=== PATIENT | female | born 1970 ===

== ENCOUNTER 2016-12-26 13:19 | Emergency (ER) | payer OTHER ==
[2016-12-26 13:29] VITALS: BMI 27.7
--- NOTE | 2016-12-26 13:48 | C.PDOC ---
History Of Present Illness 46 y/o F c PMHx peritonitis as teen, cholecystectomy, C section, myomectomy p/w abdominal pain x 3 hours. Pain is diffuse, mostly RLQ and epigastric, sharp, intermittent. She denies fever, chills, vomiting, diarrhea, constipation, dysuria. Time Seen by Provider: 12/26/16 13:42 Chief Complaint (Nursing): Abdominal Pain Past Medical History Vital Signs: Last Vital Signs Temp 98.4 F 12/26/16 16:36 Pulse 66 12/26/16 16:36 Resp 15 12/26/16 16:36 BP 116/78 12/26/16 16:36 Pulse Ox 98 12/26/16 16:36 Surgical History: Cholecystectomy Family History: States: No Known Family Hx - Social History Hx Alcohol Use: No Hx Substance Use: No - Immunization History Hx Tetanus Toxoid Vaccination: No Hx Influenza Vaccination: No Hx Pneumococcal Vaccination: No Review Of Systems Except As Marked, All Systems Reviewed And Found Negative. Constitutional: Negative for: Fever Cardiovascular: Negative for: Chest Pain Physical Exam - Physical Exam Additional Physical Exam Comments: Constitutional: No acute distress. Head: Normocephalic. Atraumatic. Eyes: PERRL. ENT: Moist mucous membranes. Neck: Supple. Cardiovascular: Regular rate. Radial pulses 2+ bilaterally. Chest: No tenderness. Respiratory: Clear to auscultation bilaterally. GI: Soft. RLQ tenderness with guarding. Epigastric tenderness without guarding. Old surgical scars from peritonitis. Nondistended. Back: No CVA tenderness. Musculoskeletal: No tenderness or swelling of extremities. Skin: No rash. Neurologic: Alert, no focal deficit. ED Course And Treatment - Laboratory Results Result Diagrams: 12/26/16 14:10 12/26/16 14:06 O2 Sat by Pulse Oximetry: 97 Medical Decision Making Medical Decision Making: Labs, urine, morphine, CT with oral contrast. Patient reports seafood allergy. PROCEDURE: CT Abdomen and Pelvis without intravenous contrast HISTORY: abd pain, RLQ tenderness COMPARISON: None. TECHNIQUE: Without contrast.. Contrast Dose: 0 Radiation dose: Total exam DLP = 402.51 mGy-cm. This CT exam was performed using one or more of the following dose reduction techniques: Automated exposure control, adjustment of the mA and/or kV according to patient size, and/or use of iterative reconstruction technique. FINDINGS: LOWER THORAX: Unremarkable. LIVER: Unremarkable. No gross lesion or ductal dilatation. GALLBLADDER AND BILE DUCTS: Status post cholecystectomy PANCREAS: Unremarkable. No gross lesion or ductal dilatation. SPLEEN: The spleen is significant for a large heterogeneous mass arising from the anterior lateral aspect of the spleen. This mass measures approximately 8.4 x 6.9 x 9.3 cm. There is serpiginous high attenuation within this mass as well as some punctate fernanda calcifications. There is nothing specific about the appearance of this mass to suggest its etiology. Differential diagnosis is extensive though most commonly splenic masses are hemangiomas or lymphangioma is or hamartomas. Further evaluation is required. ADRENALS: Unremarkable. No mass. KIDNEYS AND URETERS: Unremarkable. No hydronephrosis. No solid mass. VASCULATURE: Unremarkable. No aortic aneurysm. BOWEL: Unremarkable. No obstruction. No gross mural thickening. APPENDIX: Unremarkable. Normal appendix. PERITONEUM: No ascites or pneumoperitoneum. Incidentally noted jan atrophy of the rectus abdominis on the right side. LYMPH NODES: Unremarkable. No enlarged lymph nodes. BLADDER: Poorly distended. Grossly normal. REPRODUCTIVE: Unremarkable uterus. BONES: No acute fracture. OTHER FINDINGS: None. IMPRESSION: No evidence of appendicitis or diverticulitis. 9.3 cm heterogeneous splenic mass , within nonspecific appearance. Incidental hemiatrophy of the rectus abdominis on the right side. This may be related to prior surgery. Please correlate. Patient continues to have pain but in no acute distress. Will recommend NSAIDs, PO fluids, simethicone, Miralax. Given copy of CT report for follow up due to splenic mass. Disposition - Disposition Referrals: [facility] [Outside] Disposition: HOME/ ROUTINE Disposition Time: 16:52 Condition: STABLE Additional Instructions: PROCEDURE: CT Abdomen and Pelvis without intravenous contrast HISTORY: abd pain, RLQ tenderness COMPARISON: None. TECHNIQUE: Without contrast.. Contrast Dose: 0 Radiation dose: Total exam DLP = 402.51 mGy-cm. This CT exam was performed using one or more of the following dose reduction techniques: Automated exposure control, adjustment of the mA and/or kV according to patient size, and/or use of iterative reconstruction technique. FINDINGS: LOWER THORAX: Unremarkable. LIVER: Unremarkable. No gross lesion or ductal dilatation. GALLBLADDER AND BILE DUCTS: Status post cholecystectomy PANCREAS: Unremarkable. No gross lesion or ductal dilatation. SPLEEN: The spleen is significant for a large heterogeneous mass arising from the anterior lateral aspect of the spleen. This mass measures approximately 8.4 x 6.9 x 9.3 cm. There is serpiginous high attenuation within this mass as well as some punctate fernanda calcifications. There is nothing specific about the appearance of this mass to suggest its etiology. Differential diagnosis is extensive though most commonly splenic masses are hemangiomas or lymphangioma is or hamartomas. Further evaluation is required. ADRENALS: Unremarkable. No mass. KIDNEYS AND URETERS: Unremarkable. No hydronephrosis. No solid mass. VASCULATURE: Unremarkable. No aortic aneurysm. BOWEL: Unremarkable. No obstruction. No gross mural thickening. APPENDIX: Unremarkable. Normal appendix. PERITONEUM: No ascites or pneumoperitoneum. Incidentally noted jan atrophy of the rectus abdominis on the right side. LYMPH NODES: Unremarkable. No enlarged lymph nodes. BLADDER: Poorly distended. Grossly normal. REPRODUCTIVE: Unremarkable uterus. BONES: No acute fracture. OTHER FINDINGS: None. IMPRESSION: No evidence of appendicitis or diverticulitis. 9.3 cm heterogeneous splenic mass , within nonspecific appearance. Incidental hemiatrophy of the rectus abdominis on the right side. This may be related to prior surgery. Please correlate. Prescriptions: Famotidine [Pepcid] 1 tab PO BID #14 tab Ibuprofen [Motrin] 600 mg PO Q6 #25 tab Ondansetron ODT [Zofran ODT] 4 mg PO Q8 #12 odt Polyethylene Glycol 3350 [Miralax] 17 gm PO DAILY #238 gm Simethicone [Gas Relief] 80 mg PO QID #60 tab.chew Instructions: Abdominal Pain (ED) Forms: [employer] [facility] (Yakut) - Clinical Impression Clinical Impression: Abdominal pain - Scribe Statement The provider has reviewed the documentation as recorded by the Thereseibana Marshall All medical record entries made by the Thereseibe were at my direction and personally dictated by me. I have reviewed the chart and agree that the record accurately reflects my personal performance of the history, physical exam, medical decision making, and the department course for this patient. I have also personally directed, reviewed, and agree with the discharge instructions and disposition.
[2016-12-26] MEDS ORDERED: Sodium Chloride 0.9% 1,000 ML IV STA (13:51)
[2016-12-26] MEDS ORDERED: Sodium Chloride 0.9% 1,000 ML ONE (14:06)
[2016-12-26 14:14] LABS: BASO % 0.1 % (0.0-2.0); EOS % 0.4 % (0.0-4.0); HEMATOCRIT 41.8 % (34.0-47.0); LYMPH # 1.3 K/uL (1.0-4.3); LYMPH % 12.7 % (20.0-40.0); MEAN CORPUSCULAR HEMOGLOBIN 28.1 pg (27.0-31.0); MEAN CORPUSCULAR HGB CONC 32.3 g/dL (33.0-37.0); MEAN PLATELET VOLUME 10.2 fL (7.2-11.7); MONO # 0.5 K/uL (0.0-0.8); MONO % 5.2 % (0.0-10.0); RED CELL DISTRIBUTION WIDTH 14.4 % (11.5-14.5); WHITE BLOOD COUNT 10.4 K/uL (4.8-10.8)
[2016-12-26 14:22] LABS: CHLORIDE 100 mmol/L (98-107); POTASSIUM 3.8 mmol/L (3.6-5.2); SODIUM 143 mmol/L (132-148)
[2016-12-26 14:24] LABS: AST/SGOT 22 U/L (14-36); BILIRUBIN,TOTAL 0.6 mg/dL (0.2-1.3); CARBON DIOXIDE 28 mmol/L (22-30); GFR AFRICAN-AMERICAN > 60
[2016-12-26 14:25] LABS: ALB/GLOB RATIO 1.1 (1.0-2.1); ALKALINE PHOSPHATASE 125 U/L (38-126); ALT/SGPT 32 U/L (9-52); BLOOD UREA NITROGEN 10 mg/dL (7-17); CALCIUM 9.8 mg/dl (8.6-10.4); GLUCOSE,RANDOM 86 mg/dL (65-105)
[2016-12-26 14:31] LABS: RBC URINE 2 /hpf (0-3); URINE BILIRUBIN NEGATIVE (NEGATIVE); URINE BLOOD NEGATIVE (NEGATIVE); URINE COLOR Yellow (YELLOW); URINE GLUCOSE (UA) NORMAL (Normal); URINE KETONE NEGATIVE (NEGATIVE); URINE LEUKOCYTE ESTERASE NEG Leu/uL (Negative); URINE PROTEIN NEGATIVE (NEGATIVE); URINE UROBILINOGEN NORMAL mg/dL (0.2-1.0); WBC URINE 1 /hpf (0-5)
[2016-12-26] MEDS ORDERED: Iohexol 240 (50 ml) ONE (14:44)
[2016-12-26] MEDS ORDERED: Iohexol 240 (50 ml) PO ONE (14:45)
[2016-12-26 16:37] VITALS: RESP 15; TEMP 98.4
--- NOTE | 2016-12-26 16:53 | CT ---
PROCEDURE: CT Abdomen and Pelvis without intravenous contrast HISTORY: abd pain, RLQ tenderness COMPARISON: None. TECHNIQUE: Without contrast.. Contrast Dose: 0 Radiation dose: Total exam DLP = 402.51 mGy-cm. This CT exam was performed using one or more of the following dose reduction techniques: Automated exposure control, adjustment of the mA and/or kV according to patient size, and/or use of iterative reconstruction technique. FINDINGS: LOWER THORAX: Unremarkable. LIVER: Unremarkable. No gross lesion or ductal dilatation. GALLBLADDER AND BILE DUCTS: Status post cholecystectomy PANCREAS: Unremarkable. No gross lesion or ductal dilatation. SPLEEN: The spleen is significant for a large heterogeneous mass arising from the anterior lateral aspect of the spleen. This mass measures approximately 8.4 x 6.9 x 9.3 cm. There is serpiginous high attenuation within this mass as well as some punctate fernanda calcifications. There is nothing specific about the appearance of this mass to suggest its etiology. Differential diagnosis is extensive though most commonly splenic masses are hemangiomas or lymphangioma is or hamartomas. Further evaluation is required. ADRENALS: Unremarkable. No mass. KIDNEYS AND URETERS: Unremarkable. No hydronephrosis. No solid mass. VASCULATURE: Unremarkable. No aortic aneurysm. BOWEL: Unremarkable. No obstruction. No gross mural thickening. APPENDIX: Unremarkable. Normal appendix. PERITONEUM: No ascites or pneumoperitoneum. Incidentally noted jan atrophy of the rectus abdominis on the right side. LYMPH NODES: Unremarkable. No enlarged lymph nodes. BLADDER: Poorly distended. Grossly normal. REPRODUCTIVE: Unremarkable uterus. BONES: No acute fracture. OTHER FINDINGS: None. IMPRESSION: No evidence of appendicitis or diverticulitis. 9.3 cm heterogeneous splenic mass, within nonspecific appearance. Incidental hemiatrophy of the rectus abdominis on the right side. This may be related to prior surgery. Please correlate.
[2016-12-26] MEDS ORDERED: Magnesium Citrate Oral SOL (300 ml) PO ONE (17:29)
[2016-12-26] MEDS ORDERED: Simethicone 80 mg Chewtab PO STA (17:29)
[2016-12-26] MEDS ORDERED: Magnesium Citrate Oral SOL (300 ml) ONE (18:27)
[2016-12-26 19:22] VITALS: BP 120/72; PULSE 78; O2SAT 99
== END 2016-12-26 19:21 | disposition home or self-care (01) ==
LOC: C.ER 13:19
DX: R10.31 Right lower quadrant pain (principal)
CPT/HCPCS: 74176; 80053; 81001; 83690; 84703; 85025; 85610; 85730; 86850; 86900; 87086; 96361; 96374; 96375; 96376; 99284; J1885; J2270; J2405; J7040; Q9966